=== PATIENT | female | born 1985 | race Caucasian/White ===

== ENCOUNTER 2017-03-07 09:23 | Emergency (ER) | payer MEDICAID ==
[~2017-03-07] VITALS: Ht 152.4 cm; Wt 77.5 kg
[2017-03-07 09:26] VITALS: Ht 152.4 cm; Wt 77.5 kg
[2017-03-07] MEDS ORDERED: AMO500 PO (10:07)
--- NOTE | 2017-03-07 10:07 | ERD ---
ER Documentation Chief Complaint Date/Time DATE: 03/07/17 TIME: 10:[address] X 2 WEEKS HPI 31-year-old female presents to the emergency department for throat pain, bilateral ear pain for about 2 weeks, frontal and maxillary sinus pain, congestion. Stated that her symptoms are increased for the past 3-5 days. Exposed to family members was to same symptoms of throat pain that is viral in origin. Patient's complaint, patient's history about her complaint, my physical findings, my reevaluation are consistent with my final diagnosis of acute otitis media bilateral, frontal maxillary sinusitis. Denies headache, loss of consciousness, dizziness, blurry vision, changes in vision, photophobia, facial pain, difficulty swallowing, neck pain, shoulder pain, chest pain, cough, hemoptysis, abdominal pain, back pain, loss of appetite , nausea, vomiting, hematochezia, diarrhea, constipation, urinary symptoms, , the possibility of being , bladder and bowel incontinences, extremity weakness, extremity tenderness, numbness or tingling sensation, difficulty walking, recent travel, recent exposure to illness, recent antibiotic use in the last 3 months, fever, chills. Last menstrual period of February 16, 2017. A0. No known drug allergies. No past medical history. Surgical history of . Does not take any prescription medication. Social history: Not working at this time. Denies smoking, use of alcohol, use of illegal drugs. ROS All systems reviewed and are negative except as per history of present illness. Medications Home Meds Active Scripts Acetaminophen* (Tylenol*) 325 Mg Tablet, 1 TAB PO Q6 Y for PAIN AND OR ELEVATED TEMP, #20 TAB Prov:ANDREIA HYMAN 03/07/17 Ibuprofen* (Motrin*) 600 Mg Tab, 600 MG PO Q8, #30 TAB Prov:PASILAANDREIA TERRY 03/07/17 Ondansetron Hcl* (Zofran*) 4 Mg Tablet, 4 MG PO Q6H for NAUSEA AND/OR VOMITING, #30 TAB Prov:ANDREIA HYMAN 03/07/17 Amoxicillin* (Amoxicillin*) 500 Mg Cap, 500 MG PO TID for 7 Days, CAP Prov:PASILAANDREIA TERRY F 03/07/17 Allergies Allergies: Coded Allergies: No Known Allergy (Unverified , 03/07/17) PMhx/Soc Medical and Surgical Hx: pt denies Medical Hx History of Surgery: Yes (caesarian section) Anesthesia Reaction: No Hx Respiratory Disorders: No Hx Cardiac Disorders: No Hx Psychiatric Problems: No Hx Miscellaneous Medical Probl: No Hx Alcohol Use: No Hx Substance Use: No Hx Tobacco Use: No Smoking Status: Never smoker Physical Exam Vitals Vital Signs Date Time Temp Pulse Resp B/P Pulse Ox O2 Delivery O2 Flow Rate FiO2 03/07/17 09:26 96.6 85 18 129/62 96 Physical Exam CONSTITUTIONAL: Well-appearing; well-nourished; in no apparent distress. HEAD: Normocephalic; atraumatic. EYES: Conjunctiva clear, sclera non-icteric, EOM intact. PERRL Ears: Right ear: Hearing intact. EACs clear, TM bulging, inflamed, translucent & mobile, ossicles normal appearance, No obstructions, no erythema, no discharges. No signs of effusion.. No signs of effusion. Left ear: Hearing intact. EACs clear, TM bulging, inflamed, translucent & mobile , ossicles normal appearance, No obstructions, no erythema, no discharges Nose: No obstructions. No polyps. No external lesions. Mucosa non-inflamed. No external lesions, septum and turbinates normal. No rhinorrhea. No discharges. Frontal sinus is tender to palpation. Maxillary sinus is tender to palpation. MOUTH: Moist mucous membranes, no lesion, no obstructions, no vesicles, no thrush, patent airway Throat: Uvula in midline and nondisplaced. Right tonsil is +1 with no erythema , no exudate. Left tonsil is +1 with no erythema, no exudate. Tolerating secretions well. Good gag reflex. Patent airway. Speaks full and clear sentences. Neck: Supple, without lesions, bruits, or adenopathy. No mass. Thyroid non- enlarged and non-tender to palpation. Good and full range of motion of neck. CHEST: Symmetrical chest. Respirations even and not labored. No retractions noted. CARDIOVASCULAR: Normal S1, S2. RRR. No murmurs, gallops. RESPIRATORY: Normal chest excursion with respiration; breath sounds clear and equal bilaterally; no wheezes, rhonchi, or rales. Breathing even and unlabored. Speaking in clear, full, and complete sentences w/ ease. ABDOMEN: Normal bowel sounds normal. Soft, round, non-distended, non-guarding, no tenderness, no rebound, no organomegaly, no masses, no pulsating abdominal mass. No hernia. No peritoneal signs. : No CVA tenderness. BACK: Symmetrical shoulder. Spine is midline without deformity, tenderness. No evidence of trauma or deformity. PELVIS: Stable pelvis. No evidence of trauma or deformity. MUSCULOSKELETAL: Normal gait and station. No misalignment, asymmetry, crepitation, defects, tenderness, masses, effusions, decreased range of motion, instability, atrophy or abnormal strength or tone in the head, neck, spine, ribs , pelvis or extremities. No calf tenderness. NEUROVASCULAR: Distal pulses are present. Pedal pulse are present, equal, and normal. Capillary refills are < 2 seconds. NEUROLOGIC: Alert and oriented x4. Speaks full and clear sentences. Cranial Nerves II-XII normal. Sensation to pain, touch, and proprioception normal. Grossly unremarkable. No neurologic deficits. Romberg test is negative. PSYCHOLOGICAL: The patients mood and manner are appropriate. No hallucinations , delusions. Not SI. Not HI. Has the capacity to decide for self SKIN: Normal for age and ethnicity; warm; dry; good turgor; no apparent lesions or exudates. No rashes, hives, discoloration. Intact. Procedures/MDM Examination: Please see physical examination Disease process, medical treatment was explained to the patient and family member. They verbalized understanding and agreed with the diagnostic tests, medical treatment, and follow-up care. Re-evaluation: Denies headache, dizziness, blurry vision, neck pain, shoulder pain, chest pain, back pain, abdominal pain. No episode of emesis here in the emergency department. Alert oriented 4. Speaks full and clear sentences. No neurologic deficits. No neurovascular deficits. No right upper/right lower/ epigastric/left upper/left lower abdominal tenderness and light and deep palpation. No CVA tenderness. Negative on Rovsing sign. Negative Adi sign. No rebound tenderness. No peritoneal signs. Able to jump 5 times without abdominal pain. Consultation: None. Differential diagnosis: Peritonsillar abscess versus meningitis versus strep throat versus pharyngitis versus otitis media versus otitis externa versus sinusitis versus tooth abscess Medical decision makin-year-old female presents to the emergency department for throat pain, bilateral ear pain for about 2 weeks, frontal and maxillary sinus pain, congestion. Stated that her symptoms are increased for the past 3-5 days. Exposed to family members was to same symptoms of throat pain that is viral in origin. Patient's complaint, patient's history about her complaint, my physical findings, my reevaluation are consistent with my final diagnosis of acute otitis media bilateral, frontal maxillary sinusitis. Medications prescribed are the following: Amoxicillin. Motrin. Tylenol. Zofran. Patient and family member are made aware of the side effects and adverse reactions of the medications prescribed. Instructed on when to seek emergent and medical attention in case allergic/anaphylactic reactions or severe side effects and or adverse reactions to medications. Patient and family member verbalized understanding. Patient instructed Instructed to follow-up with his PCP in 24-48 hours. Instructed to Call 911 for chest pain, shortness of breath. Advised to come back here in ED as soon as possible for severity of symptoms which includes but not limited to: any new symptoms; shortness of breath/difficulty of breathing; cardiovascular changes; severe gastrointestinal symptoms; signs and symptoms of bleeding and or infection; signs of compartment syndrome/neurovascular changes; neurological changes/deficits. Patient and family member verbalized understanding. Upon discharge, patient is alert and oriented x 4, speaks full and clear sentences, denies pain, has no neurological deficits, has no neurovascular deficits, difficulty of breathing. Breathing even and unlabored. Lung sounds are clear to auscultation. Not in distress. Appears comfortable. Ambulatory with steady gait. Appears satisfied with care provided here in ED. Departure Diagnosis: Primary Impression: Sinusitis Additional Impression: Otitis media Condition: Stable Additional Instructions: Follow-up with primary care physician in the next 24-48 hours. Come back to emergency department for any new symptoms or any worsening symptoms. Patient verbalized understanding. Hemodynamically stable discharge. ANDREIA HYMAN March 07, 2017 10:07 Condition: Stable Additional Instructions: Follow-up with primary care physician in the next 24-48 hours. Come back to emergency department for any new symptoms or any worsening symptoms. Patient verbalized understanding. Hemodynamically stable discharge. ANDREIA HYMAN March 07, 2017 10:07
[2017-03-07] MEDS ORDERED: IBUP-1542 PO (10:08)
[2017-03-07] MEDS ORDERED: ACET325T33 PO (10:08)
[2017-03-07] MEDS ORDERED: ONDA4TAB8 PO (10:08)
== END 2017-03-07 12:08 | disposition home or self-care (01) ==
LOC: FTE 09:23
DX: J32.9 Chronic sinusitis, unspecified (principal); H66.91 Otitis media, unspecified, right ear
CPT/HCPCS: 99284

== ENCOUNTER 2017-08-04 18:29 | Emergency (ER) | payer MEDICAID ==
[~2017-08-04] VITALS: Ht 157.5 cm; Wt 76.0 kg
[~2017-08-04 18:29] MED LIST: ACET325T33 PO; AMOX500C2 PO; IBUP-1542 PO; ONDA4TAB8 PO
[2017-08-04 18:32] VITALS: Ht 157.5 cm; Wt 76.0 kg
[2017-08-04] MEDS ORDERED: HYDROCODONE/APAP (5/325) TAB PO ONE (19:00)
--- NOTE | 2017-08-04 19:14 | RADRPT ---
PROCEDURE: CT Brain without contrast. CLINICAL INDICATION: trauma, fall TECHNIQUE: A CT of the brain was performed on a [employer] 64-slice CT scanner utilizing axial imaging from the skull base through the vertex without IV contrast. Multiplanar reformatted images were made. Images were reviewed on a PACS workstation. The CTDIvol is 44.7 mGy and the DLP is 720 mGycm. One or more of the following dose reduction techniques were used: Automated exposure control. Adjustment of the mA and/or kV according to patient size. Use of iterative reconstruction technique. COMPARISON: None FINDINGS: There is no intracranial hemorrhage, mass effect, or midline shift. No extra-axial fluid collection is seen. The ventricles and sulci are normal in size and configuration. The density of the brain is normal, and the barajas white matter differentiation appears well-preserved. Right caudate head small focal calcification is nonspecific but may reflects sequelae of old neurocysticercosis. The visuali zed paranasal sinuses and osseous structures are grossly unremarkable. IMPRESSION: 1. No evidence of acute intracranial pathology. Physician Amanda Date Time Electronically viewed and signed by Physician Amanda on 08/04/2017 19:14 ML/
--- NOTE | 2017-08-04 19:26 | ERD ---
ER Documentation Chief Complaint Date/Time DATE: 08/04/17 TIME: 19:22 Chief Complaint SP GROUND LEVEL FALL AND FELL AT BACK, C/O BACK PAIN, left leg pain HPI This is a 31-year-old female presents emergency department today complaining of left ankle pain, back pain and head pain after slipping and falling on water at [employer] earlier today. Patient denies any loss of consciousness or vomiting however she states that she "got dizzy". She has not taken a medication for the pain. Denies any fevers or chills. ROS All systems reviewed and are negative except as per history of present illness. Medications Home Meds Active Scripts Cyclobenzaprine Hcl* (Cyclobenzaprine Hcl*) 10 Mg Tablet, 10 MG PO QHS, #7 TAB Prov:JAG KONG PA-C 08/04/17 Naproxen* (Naprosyn*) 500 Mg Tablet, 500 MG PO BID Y for PAIN AND/OR INFLAMMATION, #30 TAB Prov:JAG KONG PA-C 08/04/17 Tramadol HCl (Tramadol HCl) 50 Mg Tablet, 50 MG PO Q4 Y for PAIN, #20 TAB Prov:JAG KONG PA-C 08/04/17 Acetaminophen* (Tylenol*) 325 Mg Tablet, 1 TAB PO Q6 Y for PAIN AND OR ELEVATED TEMP, #20 TAB Prov:ANDREIA HYMAN 03/07/17 Ibuprofen* (Motrin*) 600 Mg Tab, 600 MG PO Q8, #30 TAB Prov:ANDREIA HYMAN 03/07/17 Ondansetron Hcl* (Zofran*) 4 Mg Tablet, 4 MG PO Q6H for NAUSEA AND/OR VOMITING, #30 TAB Prov:ANDREIA HYMAN 03/07/17 Amoxicillin* (Amoxicillin*) 500 Mg Cap, 500 MG PO TID for 7 Days, CAP Prov:ANDREIA HYMAN 03/07/17 Allergies Allergies: Coded Allergies: No Known Allergy (Unverified , 03/07/17) PMhx/Soc History of Surgery: Yes (caesarian section) Anesthesia Reaction: No Hx Neurological Disorder: No Hx Respiratory Disorders: No Hx Cardiac Disorders: No Hx Psychiatric Problems: No Hx Miscellaneous Medical Probl: No Hx Alcohol Use: No Hx Substance Use: No Hx Tobacco Use: No Smoking Status: Never smoker Physical Exam Vitals Vital Signs Date Time Temp Pulse Resp B/P Pulse Ox O2 Delivery O2 Flow Rate FiO2 08/04/17 18:32 99.0 102 20 140/78 99 Physical Exam Const: NAD Head: Atraumatic Eyes: Normal Conjunctiva. PERRLA, EOM ENT: Normal External Ears, Nose and Mouth. Neck: Full range of motion..~ No meningismus. Resp: Clear to auscultation bilaterally Cardio: Regular rate and rhythm, no murmurs Abd: Soft, non tender, non distended. Normal bowel sounds Skin: No petechiae or rashes Back: Lumbar spine midline tenderness. No obvious deformity. No step-off. Full active range of motion. Pulses 2+. Neurovascularly intact. MSK: Left ankle with no obvious deformity. No effusion. No ecchymosis. Tenderness to palpation medial and lateral malleolus. Pulses 2+. Distal neurovascularly intact. Decreased range of motion secondary to pain. Neur: Awake and alert cranial nerves II through XII intact. No gait ataxia. Psych: Normal Mood and Affect Results 24 hrs Current Medications Medications (Trade) Dose Ordered Sig/Favian Route PRN Reason Start Time Stop Time Status Last Admin Dose Admin Acetaminophen/ Hydrocodone Bitart ([place] (5/325)) 1 tab ONCE ONCE PO 08/04/17 19:00 08/04/17 19:01 DC 08/04/17 19:56 DIAGNOSTIC IMAGING REPORT Patient: JULIANA VILLANUEVA : 1985 Age: 31 Sex: F MR #: [id number] [facility] #: [id number] DOS: 08/04/17 0000 Ordering MD: JAG KONG PA-C [facility] Room/Bed: PROCEDURE: CT Brain without contrast. CLINICAL INDICATION: trauma, fall TECHNIQUE: A CT of the brain was performed on a [employer] 64-slice CT scanner utilizing axial imaging from the skull base through the vertex without IV contrast. Multiplanar reformatted images were made. Images were reviewed on a PACS workstation. The CTDIvol is 44.7 mGy and the DLP is 720 mGycm. One or more of the following dose reduction techniques were used: Automated exposure control. Adjustment of the mA and/or kV according to patient size. Use of iterative reconstruction technique. COMPARISON: None FINDINGS: There is no intracranial hemorrhage, mass effect, or midline shift. No extra- axial fluid collection is seen. The ventricles and sulci are normal in size and configuration. The density of the brain is normal, and the barajas white matter differentiation appears well-preserved. Right caudate head small focal calcification is nonspecific but may reflects sequelae of old neurocysticercosis. The visualized paranasal sinuses and osseous structures are grossly unremarkable. IMPRESSION: 1. No evidence of acute intracranial pathology. Physician Amanda Date Time Electronically viewed and signed by Physician Amanda on 08/04/2017 19 :14 ML/ CC: JAG KONG PA-C DIAGNOSTIC IMAGING REPORT Patient: JULIANA VILLANUEVA : 1985 Age: 31 Sex: F MR #: [id number] DOS: 08/04/17 0000 Ordering MD: JAG KONG PA-C Location: [facility] Room/Bed: PROCEDURE: XR Ankle. CLINICAL INDICATION: 31 years of age, female. Left ankle pain. TECHNIQUE: Three views of the left ankle. COMPARISON: None available. FINDINGS: No acute fracture or dislocation is identified. Normal alignment on this non-stressed view. Negative for significant soft tissue swelling.. IMPRESSION: Negative for evidence of acute fracture or dislocation of the left ankle. RPTAT: HCTS Physician Tyler Date Time Electronically viewed and signed by Physician Tyler on 08/04/2017 20: 47 CS/ CC: JAG KONG PA-C DIAGNOSTIC IMAGING REPORT Patient: JULIANA VILLNAUEVA : 1985 Age: 31 Sex: F MR #: [id number] DOS: 08/04/17 0000 Ordering MD: JAG KONG PA-C Location: [facility] Room/Bed: PROCEDURE: XR Lumbar Spine. CLINICAL INDICATION: 31-year of age, female. Pain. Trauma. Fall. TECHNIQUE: AP, lateral and cone-down lateral views of the lumbar spine were obtained. COMPARISON: No prior studies are available for comparison. FINDINGS: There are 5 lumbar-type vertebrae. Lumbar spine is imaged from T12 to the sacrum. Negative for evidence of acute fracture or traumatic subluxation. There is a mild curvature of the lower lumbar spine convex right. Alignment is otherwise normal. Normal bone mineralization. Vertebral body heights are maintained. No suspicious bone lesions. Disk spaces are maintained. The posterior elements are unremarkable. 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 Incidental note is made of an IUD projected over the pelvis. IMPRESSION: Negative for evidence of acute fracture or traumatic subluxation of the lumbar spine. Negative for significant degenerative change. RPTAT: HCTS Physician Tyler Date Time Electronically viewed and signed by Silvano Jones Physician on 08/04/2017 20: 49 CS/ CC: JAG KONG PA-C Procedures/MDM This is a 31-year-old female who presents to the emergency department today complaining of back pain, headache and left ankle pain after sustaining a mechanical fall at [employer] earlier today when she slipped on wet water. Patient is afebrile and otherwise well-appearing. She is no focal neurologic deficits and no gait ataxia. There is no loss of consciousness and no vomiting and I did not feel that the patient requires a head CT scan at this time however patient was requesting this Per the radiology report images of the lumbar spine show no acute fracture or traumatic subluxation of the lumbar spine. Is negative for significant degenerative changes. Images of the left ankle shows no acute fracture or dislocation. Head CT noncontrast shows no evidence of acute intracranial pathology. There is no intracranial hemorrhage, mass-effect or midline shift. There are small focal calcifications that are nonspecific but may reflect sequelae of old neurocysticercosis. Symptoms at this time is consistent back injury and ankle injury and acute head injury likely sprain versus strain versus contusion secondary to mechanical fall. She was given [place] here in the emergency department as an Gabino wrap for her ankle. She will given a short course of tramadol, naprosyn, and Flexeril for home At this time the patient is stable for discharge and outpatient management. Patient should follow up with their PCP in the next 1-2 days. They may return to the emergency department sooner for any persistent or worsening of symptoms. Patient understood and agreed with the plan. Departure Diagnosis: Primary Impression: Fall Encounter type: initial encounter Qualified Code: W19.XXXA - Fall, initial encounter Additional Impression: Injury of back Encounter type: initial encounter Qualified Code: S39.92XA - Injury of back , initial encounter Condition: JAG Brunson PA-C Aug 04, 2017 19:26
--- NOTE | 2017-08-04 20:47 | RADRPT ---
PROCEDURE: XR Ankle. CLINICAL INDICATION: 31 years of age, female. Left ankle pain. TECHNIQUE: Three views of the left ankle. COMPARISON: None available. FINDINGS: No acute fracture or dislocation is identified. Normal alignment on this non-stressed view. Negative for significant soft tissue swelling.. IMPRESSION: Negative for evidence of acute fracture or dislocation of the left ankle. RPTAT: HCTS Physician Tyler Date Time Electronically viewed and signed by Silvano Jones Physician on 08/04/2017 20:47 CS/
--- NOTE | 2017-08-04 20:49 | RADRPT ---
PROCEDURE: XR Lumbar Spine. CLINICAL INDICATION: 31-year of age, female. Pain. Trauma. Fall. TECHNIQUE: AP, lateral and cone-down lateral views of the lumbar spine were obtained. COMPARISON: No prior studies are available for comparison. FINDINGS: There are 5 lumbar-type vertebrae. Lumbar spine is imaged from T12 to the sacrum. Negative for evidence of acute fracture or traumatic subluxation. There is a mild curvature of the lower lumbar spine convex right. Alignment is otherwise normal. Normal bone mineralization. Vertebral body heights are maintained. No suspicious bone lesions. Disk spaces are maintained. The posterior elements are unremarkable. There is sclerosis at the iliac side of bilateral sacroiliac joints likely due to osteitis condensan s ilii that is greater on the left. Incidental note is made of an IUD projected over the pelvis. IMPRESSION: Negative for evidence of acute fracture or traumatic subluxation of the lumbar spine. Negative for significant degenerative change. RPTAT: HCTS Physician Tyler Date Time Electronically viewed and signed by Physician Tyler on 08/04/2017 20:49 PURVI/
[2017-08-04] MEDS ORDERED: TRAM50TA2 PO (20:59)
[2017-08-04] MEDS ORDERED: NAPR-260 PO (20:59)
[2017-08-04] MEDS ORDERED: CYCL-319 PO (21:00)
[2017-08-04 21:37] VITALS: BP 126/68; PULSE 71; RESP 16; TEMP 98.3
== END 2017-08-04 21:38 | disposition home or self-care (01) ==
LOC: FTE 18:29
DX: S39.92XA Unspecified injury of lower back, initial encounter (principal); R51 Headache; W01.0XXA Fall on same level from slipping, tripping and stumbling without subsequent striking against object, initial encounter; Y92.9 Unspecified place or not applicable
CPT/HCPCS: 70450; 72100; 73610; Z7502; Z7610

== ENCOUNTER 2018-01-11 17:00 | Emergency (ER) | END 2018-01-11 21:36 | disposition home or self-care (01) ==